=== PATIENT | female | born 1960 | race Caucasian/White ===

== ENCOUNTER 2017-08-10 19:13 | Emergency (ER) | payer SELFPAY ==
[~2017-08-10] VITALS: Ht 165.1 cm; Wt 71.0 kg
[~2017-08-10 19:13] MED LIST: AMOX875T PO; IPRA0.06 EACH NARE; VENTAER INH
[2017-08-10 19:19] VITALS: BP 192/81; PULSE 95; RESP 16; TEMP 99; O2SAT 98
[2017-08-10] MEDS ORDERED: ALBU.5I NEB (19:42)
[2017-08-10] MEDS ORDERED: PRED20 PO (19:47)
[2017-08-10] MEDS ORDERED: FLUT1SPR5 EACH NARE (19:47)
[2017-08-10] MEDS ORDERED: AUGM875T3 PO (19:47)
--- NOTE | 2017-08-10 19:49 | PD ---
HPI Chief Complaint: Cold / Flu Symptoms Time Seen by Provider: 19:36 Travel History International Travel<30 days: No Contact w/Intl Traveler<30days: No Traveled to known affect area: No History of Present Illness HPI 56-year-old female with history of asthma presents for evaluation of cough, congestion, facial and sinus pressure. Symptoms started 2 weeks ago. Cough and rhinorrhea are green in color. She endorses some ear pressure as well. She reports that she had a low-grade fever a few days ago, none currently. She has no other complaints at this time. PFSH Past Medical History Arthritis: Yes Asthma: Yes Anxiety: Yes (PANIC ATTACKS) Heart Rhythm Problems: Yes (SVT) Cardiovascular Problems: Yes (ABLATION) Diminished Hearing: No Respiratory: Yes (ASTHMA) Immunizations Current: Yes Tetanus Vaccination: > 5 Years Influenza Vaccination: No ?: Unknown Menopausal: No : 7 Para: 1 Miscarriage: 1 : 5 Past Surgical History Thoracic Surgery: Yes Other Surgery: No Social History Alcohol Use: Yes (SOCIALLY) Tobacco Use: Yes (1/2 PPD ) Substance Use: No Allergies-Medications (Allergen,Severity, Reaction): Coded Allergies: aspirin (Unverified Allergy, Severe, EYE SWELLING, 08/10/17) diphenhydramine (Unverified Allergy, Severe, 08/10/17) erythromycin base (Unverified Allergy, Severe, HIVES in the Jaw Line, 08/10) Sulfa (Sulfonamide Antibiotics) (Unverified Allergy, Intermediate, HIVES, 08/10/17) iodine (Unverified Allergy, Unknown, SWELLING, 08/10/17) potassium iodide (Unverified Allergy, Unknown, SWELLING, 08/10/17) povidone-iodine (Unverified Allergy, Unknown, SWELLING, 08/10/17) sodium iodide (Unverified Allergy, Unknown, SWELLING, 08/10/17) sodium iodide (Unverified Allergy, Unknown, SWELLING, 08/10/17) Uncoded Allergies: latex (Allergy, Mild, rash, 11/12/11) pt stated Reported Meds & Prescriptions Reported Meds & Active Scripts Active Flonase Nasal [place] (Fluticasone Nasal [place]) 50 Mcg/Act [place] 100 Mcg EACH NARE BID Prednisone 20 Mg Tab 20 Mg PO BID 5 Days Augmentin (Amoxicillin-Clavulanate) 875-125 Mg Tab 1 Tab PO BID 10 Days Ventolin Hfa 18 GM Inh (Albuterol Sulfate) 90 Mcg/Act Aer 2 Puff INH Q6H PRN Reported Albuterol Neb (Albuterol Sulfate) 2.5 Mg/0.5 Ml Neb 2.5 Mg NEB BID PRN Note: The Albuterol Sulfate Inhalation Solution is concentrated and must be diluted. Read complete instructions carefully before using. Review of Systems Except as stated in HPI: all other systems reviewed are Neg Physical Exam Narrative GENERAL: Well-developed well-nourished female no acute distress SKIN: Warm and dry. HEAD: Atraumatic. Normocephalic. EYES: Pupils equal and round. No scleral icterus. No injection or drainage. ENT: No nasal bleeding or discharge. Mucous membranes pink and moist. NECK: Trachea midline. No JVD. CARDIOVASCULAR: Regular rate and rhythm. No murmur appreciated. RESPIRATORY: No accessory muscle use. Faint wheezing bilaterally Data Data Last Documented VS Vital Signs Date Time Temp Pulse Resp B/P (MAP) Pulse Ox O2 Delivery O2 Flow Rate FiO2 08/10/17 19:19 99.0 95 16 192/81 (118) 98 MDM Medical Decision Making Medical Screen Exam Complete: Yes Emergency Medical Condition: Yes Medical Record Reviewed: Yes Differential Diagnosis Sinusitis, bronchitis, asthma exacerbation, pneumonia Narrative Course Examination is consistent with sinusitis and mild asthma exacerbation. The patient will be discharged with Flonase, Augmentin, prednisone. Her blood pressure is noted to be elevated as she reports that she quit smoking 3 days ago and this is likely secondary to nicotine withdrawal. She reports that typically her blood pressures in the 110s over 80s. Recommended that she monitor blood pressure closely on a regular basis and keep a journal of these readings and follow up with a primary care physician. She is stable for discharge. Diagnosis Primary Impression: Sinusitis Additional Impression: Asthma exacerbation Additional Instructions: Medication as prescribed. Monitor blood pressure on a regular basis and keep a journal of these readings. Follow-up with primary care physician. Return for any emergent medical conditions. Med/Other Pt SpecificInfo: Prescription(s) given Scripts Fluticasone Nasal [place] (Flonase Nasal [place]) 50 Mcg/Act [place] 100 MCG EACH NARE BID for Allergies, #1 BOTTLE 0 Refills Prov: Fernando Rajan MD 08/10/17 Prednisone (Prednisone) 20 Mg Tab 20 MG PO BID for 5 Days, #10 TAB 0 Refills Prov: Fernando Rajan MD 08/10/17 Amoxicillin-Clavulanate (Augmentin) 875-125 Mg Tab 1 TAB PO BID for Infection for 10 Days, #20 TAB 0 Refills Prov: Fernando Rajan MD 08/10/17 Disposition: 01 DISCHARGE HOME Condition: Stable Greard [place] Aug 10, 2017 19:49
== END 2017-08-10 20:28 | disposition home or self-care (01) ==
LOC: NEPD 19:13
DX: J32.9 Chronic sinusitis, unspecified (principal); J45.901 Unspecified asthma with (acute) exacerbation; R03.0 Elevated blood-pressure reading, without diagnosis of hypertension; M19.90 Unspecified osteoarthritis, unspecified site; F41.0 Panic disorder [episodic paroxysmal anxiety]; Z87.891 Personal history of nicotine dependence
CPT/HCPCS: 99283

== ENCOUNTER 2017-08-30 22:52 | Emergency (ER) | payer SELFPAY ==
[~2017-08-30] VITALS: Ht 165.1 cm; Wt 63.0 kg
[~2017-08-30 22:52] MED LIST changes: +ALBU.5I NEB; -AMOX875T PO; +AUGM875T3 PO; +FLUT1SPR5 EACH NARE; -IPRA0.06 EACH NARE; +PRED20 PO
[2017-08-30 22:57] VITALS: BP 165/77; PULSE 106; RESP 16; TEMP 100.2; O2SAT 96
[2017-08-31] MEDS ORDERED: SODIUM CHLORIDE 0.9% FLUSH 10 ML FLUSH IVF PRN (01:45)
[2017-08-31] MEDS ORDERED: IBUPROFEN 800 MG TAB PO ONE (01:45)
[2017-08-31] MEDS ORDERED: ACETAMINOPHEN 325 MG TAB PO ONE (02:30)
[2017-08-31] MEDS ORDERED: DOXYCYCLINE HYCLATE 100 MG CAP PO ONE (02:30)
[2017-08-31] MEDS ORDERED: FLUT50SP EACH NARE (02:42)
[2017-08-31] MEDS ORDERED: DOXY100C PO (02:42)
[2017-08-31 02:43] VITALS: BP 139/65; PULSE 91; RESP 18; O2SAT 97
--- NOTE | 2017-08-31 02:43 | PD ---
HPI Chief Complaint: Cold / Flu Symptoms Time Seen by Provider: 01:28 Travel History International Travel<30 days: No Contact w/Intl Traveler<30days: No Traveled to known affect area: No History of Present Illness HPI Patient is a 57-year-old female presenting to emerge from for evaluation of sinus pressure, headache, nasal congestion. Patient states her symptoms started 1 week ago. She reports being on antibiotics for sinusitis approximately 1 month ago. She reports a max temp of 101.2 at home prior to arrival in the emergency department, she took acetaminophen 650 mg prior to arrival. She denies any chest pain, abdominal pain, shortness of breath, visual changes, dizziness. Patient states that she has been using a humidifier at home. Fever started today, symptom onset was gradual. Patient states home remedies are not helping her symptoms. She reports that she was on Augmentin for 10 days for sinusitis 1 month ago. PFSH Past Medical History Arthritis: Yes Asthma: Yes Anxiety: Yes (PANIC ATTACKS) Heart Rhythm Problems: Yes (SVT) Cardiovascular Problems: Yes (ABLATION) Diminished Hearing: No Respiratory: Yes (ASTHMA) Immunizations Current: Yes Influenza Vaccination: No ?: Not LMP: JULY 2014 Menopausal: Yes : 7 Para: 1 Miscarriage: 1 : 5 Past Surgical History Thoracic Surgery: Yes Other Surgery: No Social History Alcohol Use: Yes (SOCIALLY) Tobacco Use: Yes Substance Use: No Allergies-Medications (Allergen,Severity, Reaction): Coded Allergies: aspirin (Unverified Allergy, Severe, EYE SWELLING, 08/30/17) diphenhydramine (Unverified Allergy, Severe, 08/30/17) erythromycin base (Unverified Allergy, Severe, HIVES in the Jaw Line, ) Sulfa (Sulfonamide Antibiotics) (Unverified Allergy, Intermediate, HIVES, 08/30/17) iodine (Unverified Allergy, Unknown, SWELLING, 08/30/17) potassium iodide (Unverified Allergy, Unknown, SWELLING, 08/30/17) povidone-iodine (Unverified Allergy, Unknown, SWELLING, 08/30/17) sodium iodide (Unverified Allergy, Unknown, SWELLING, 08/30/17) sodium iodide (Unverified Allergy, Unknown, SWELLING, 08/30/17) Uncoded Allergies: latex (Allergy, Mild, rash, 11/12/11) pt stated Reported Meds & Prescriptions Reported Meds & Active Scripts Active Flonase Nasal [place] (Fluticasone Nasal [place]) 50 Mcg/Act [place] 100 Mcg EACH NARE BID Prednisone 20 Mg Tab 20 Mg PO BID 5 Days Augmentin (Amoxicillin-Clavulanate) 875-125 Mg Tab 1 Tab PO BID 10 Days Ventolin Hfa 18 GM Inh (Albuterol Sulfate) 90 Mcg/Act Aer 2 Puff INH Q6H PRN Reported Albuterol Neb (Albuterol Sulfate) 2.5 Mg/0.5 Ml Neb 2.5 Mg NEB BID PRN Note: The Albuterol Sulfate Inhalation Solution is concentrated and must be diluted. Read complete instructions carefully before using. Review of Systems Except as stated in HPI: all other systems reviewed are Neg General / Constitutional: Positive: Fever HENT: Positive: Headaches, Congestion, No: Sore Throat, Earache Cardiovascular: No: Chest Pain or Discomfort Respiratory: No: Cough, Shortness of Breath Gastrointestinal: No: Nausea, Abdominal Pain Musculoskeletal: No: Myalgias Physical Exam Narrative GENERAL: Well-developed, well-nourished, alert female. Presenting in no acute distress. SKIN: Warm and dry. HEAD: Atraumatic. Normocephalic. Tenderness to palpation over maxillary and ethmoid sinuses. EYES: Pupils equal and round. No scleral icterus. No injection or drainage. ENT: No nasal bleeding or discharge. Mucous membranes pink and moist. Posterior pharynx with cobblestone appearance. NECK: Trachea midline. No JVD. CARDIOVASCULAR: Regular rate and rhythm. RESPIRATORY: No accessory muscle use. Clear to auscultation. Breath sounds equal bilaterally. GASTROINTESTINAL: Abdomen soft, non-tender, nondistended. Hepatic and splenic margins not palpable. MUSCULOSKELETAL: Extremities without clubbing, cyanosis, or edema. No obvious deformities. NEUROLOGICAL: Awake and alert. No obvious cranial nerve deficits. Motor grossly within normal limits. Five out of 5 muscle strength in the arms and legs. Normal speech. PSYCHIATRIC: Appropriate mood and affect; insight and judgment normal. Data Data Last Documented VS Vital Signs Date Time Temp Pulse Resp B/P (MAP) Pulse Ox O2 Delivery O2 Flow Rate FiO2 08/30/17 22:57 100.2 106 16 165/77 (106) 96 Room Air Orders Orders Influenzae A/B Antigen (08/31/17 01:44) Oximetry (08/31/17 01:44) Ibuprofen (Motrin) (08/31/17 01:45) Sodium Chloride 0.9% Flush (Ns Flush) (08/31/17 01:45) Acetaminophen (Tylenol) (08/31/17 02:30) Doxycycline (Vibramycin) (08/31/17 02:30) MDM Medical Decision Making Medical Screen Exam Complete: Yes Emergency Medical Condition: Yes Interpretation(s) Vital Signs Date Time Temp Pulse Resp B/P (MAP) Pulse Ox O2 Delivery O2 Flow Rate FiO2 08/30/17 22:57 100.2 106 16 165/77 (106) 96 Room Air Differential Diagnosis Influenza versus viral syndrome versus sinusitis versus bronchitis versus other Narrative Course Patient is a 57-year-old female presenting to emerge department for evaluation of 1 week of sinus pressure, headache, nasal congestion. Temp on arrival was 100.2, patient's temp was reassessed was normal. Patient been on Augmentin previously she will be started on doxycycline now. She is advised to follow-up with her primary doctor. She will also be given prescriptions for fluticasone nasal spray. She was encouraged to continue symptom management, complete full course of antibiotics as prescribed. She is encouraged return to emergency department for any new or worsening symptoms. Diagnosis Primary Impression: Acute infection of sinus Qualified Codes: J01.41 - Acute recurrent pansinusitis Referrals: Primary Care Physician 3 days Patient Instructions: General Instructions, Sinusitis (ED) Additional Instructions: Follow-up with your primary doctor Take medications as directed Return to emergency department for any new or worsening symptoms Med/Other Pt SpecificInfo: Prescription(s) given Scripts Fluticasone Nasal [place] (Fluticasone Nasal [place]) 50 Mcg/Act Naspr 100 MCG EACH NARE DAILY for Allergy Management, #1 BOTTLE 0 Refills 50 mcg/spray Prov: Janie Maldonado 08/31/17 Doxycycline Hyclate (Doxycycline Hyclate) 100 Mg Cap 100 MG PO BID for Infection, #20 CAP 0 Refills Prov: Janie Maldonado 08/31/17 Disposition: 01 DISCHARGE HOME Condition: Stable Janie Maldonado Aug 31, 2017 02:43
== END 2017-08-31 02:53 | disposition home or self-care (01) ==
LOC: NEPD 22:52
DX: J01.41 Acute recurrent pansinusitis (principal); J45.909 Unspecified asthma, uncomplicated; F41.0 Panic disorder [episodic paroxysmal anxiety]; I47.1 Supraventricular tachycardia; Z72.0 Tobacco use
CPT/HCPCS: 87804; 99283